=== PATIENT | female | born 1985 | race Caucasian/White ===

== ENCOUNTER → 2017-01-23 | Outpatient (CLI) | payer OTHER ==
[2017-01-23 12:14] LABS: BASO % 0.2 %; BASO ABS # 0.01 K/uL (0-0.2); COMPLETE YES; EOS % 0.3 %; HEMATOCRIT 33.9 % (37-47); IG% 0.2 %; LYMPH % 9.1 %; LYMPH ABS # 0.53 K/uL (1.2-3.4); MEAN CELL VOLUME 90.9 fL (80-100); MEAN CORPUSCULAR HEMOGLOBIN 32.2 pg (25-34); MEAN CORPUSCULAR HGB CONC 35.4 g/dl (32-36); MEAN PLATELET VOLUME 10.5 fL (7.4-10.4); MONO % 7.2 %; PLATELET COUNT 197 K/uL (130-400); RED BLOOD COUNT 3.73 M/uL (4.2-5.4); WHITE BLOOD COUNT 5.85 K/uL (4.8-10.8)
[2017-01-23 16:24] LABS: URINE APPEARANCE CLEAR (CLEAR); URINE BILIRUBIN NEG (NEG); URINE COLOR DK YELLOW; URINE NITRITE NEG (NEG); URINE PH 5.5 (4.5-7.5); UROBILINOGEN NEG (NEG)
[2017-01-23 16:30] LABS: MANUAL MICROSCOPIC REQUIRED? NO; REVIEW REQ? NO
[2017-01-25 22:32] LABS: CHLAMYDIA TRACH RNA*** NOT DETECTED (NOT DETECTED); GC (NEIS GONORRHOEAE)RNA** NOT DETECTED (NOT DETECTED)
== END | disposition home or self-care (01) ==
LOC: C.LAB1850 10:45
PROVIDERS: ATTEND Obstetrics & Gynecology
DX: Z34.91 Encounter for supervision of normal pregnancy, unspecified, first trimester (principal); Z3A.00 Weeks of gestation of pregnancy not specified

== ENCOUNTER → 2017-05-23 | Outpatient (CLI) | payer OTHER | END | disposition home or self-care (01) | LOC: C.LABSPEC 16:50 | PROVIDERS: ATTEND Obstetrics & Gynecology | DX: Z34.83 Encounter for supervision of other normal pregnancy, third trimester (principal); Z3A.00 Weeks of gestation of pregnancy not specified ==

== ENCOUNTER → 2017-06-01 | Outpatient (CLI) | payer OTHER ==
[~2017-06-01] MED LIST: CALC500C3 PO; DOCU-94 PO; DOXY25TA7; ONDA4TAB46 PO; PRENTAB26 PO
[2017-06-01 13:27] LABS: HEMATOCRIT 30.6 % (37-47); HEMOGLOBIN 10.6 g/dL (12.0-16.0)
== END | disposition home or self-care (01) ==
LOC: C.LAB1850 09:28
PROVIDERS: ATTEND Obstetrics & Gynecology
DX: Z34.83 Encounter for supervision of other normal pregnancy, third trimester (principal)

== ENCOUNTER 2017-06-05 22:12 | Outpatient (CLI) | payer OTHER ==
[~2017-06-05] VITALS: Ht 154.9 cm; Wt 55.0 kg
[2017-06-06] MEDS ORDERED: ONDA4TAB46 PO (00:04)
[2017-06-06] MEDS ORDERED: CALC500C3 PO (00:04)
[2017-06-06] MEDS ORDERED: DOCU-94 PO (00:05)
[2017-06-06] MEDS ORDERED: PRENTAB26 PO (00:05)
[2017-06-06] MEDS ORDERED: DOXY25TA7 (00:06)
[2017-06-06 00:23] VITALS: Ht 154.9 cm; Wt 55.0 kg
== END 2017-06-06 00:18 | disposition home or self-care (01) ==
LOC: C.LD 22:12 → C.OPB 22:12
PROVIDERS: ATTEND Obstetrics & Gynecology
DX: O26.893 Other specified pregnancy related conditions, third trimester (principal); R10.9 Unspecified abdominal pain; Z3A.28 28 weeks gestation of pregnancy

== ENCOUNTER 2017-06-22 11:59 | Outpatient (CLI) | payer OTHER ==
[~2017-06-22] VITALS: Ht 154.9 cm; Wt 56.0 kg
[~2017-06-22 11:59] MED LIST changes: -DOXY25TA7; +DOXY25TA8
[2017-06-22] MEDS ORDERED: [UNRECOGNIZED DRUG - CODE] (14:39)
[2017-06-22 14:48] VITALS: Ht 154.9 cm; Wt 56.0 kg
== END 2017-06-22 13:42 | disposition home or self-care (01) ==
LOC: C.OPB 11:59 → C.LD 11:59 → C.OPB 13:42
PROVIDERS: ATTEND Obstetrics & Gynecology
DX: O36.5930 Maternal care for other known or suspected poor fetal growth, third trimester, not applicable or unspecified (principal); Z3A.31 31 weeks gestation of pregnancy

== ENCOUNTER 2017-07-08 11:16 | Emergency (ER) | payer OTHER ==
[~2017-07-08] VITALS: Ht 157.5 cm; Wt 56.9 kg
[~2017-07-08 11:16] MED LIST changes: -DOXY25TA8; +DOXY25TA8 PO; +[UNRECOGNIZED DRUG - CODE]
[2017-07-08 11:21] VITALS: TEMP 36.9; Ht 157.5 cm; Wt 56.9 kg
[2017-07-08] MEDS ORDERED: SODIUM CHLORIDE 0.9% 1000ML 1,000 ML IV STA (11:43)
--- NOTE | 2017-07-08 12:09 | EMERGENCY ROOM VISIT NOTE ---
History Report prepared by Yasiribe: Char Garduno Under the Supervision of: Dr. Viry Kwan M.D. First contact with patient: 11:38 Chief Complaint: HYPERTENSION Stated Complaint: HIGH HEART RATE, 33 WKS PREG, OXYGEN HUNGER THROUG History of Present Illness The patient is a 31 year old female who presents to the Emergency Room with complaints of intermittent tachycardia for the past 3 months. She is currently 33 weeks with her 2nd and has 1 child at home. She states her heart rate was in the 100s with no activity earlier today, so she called her [facility] UP WORKER and was referred here to the ED. She notes last night she did experience chest pain while grocery shopping, but it eventually resolved. The patient complains of ongoing "Oxygen hunger", stating she feels like she cannot get enough Oxygen from the air. She denies hyperventilating or feeling like she is gasping for breath. The episodes seem to occur during urination. The patient denies any personal history of blood clots but states her Father did develop a DVT after surgery. She denies any recent fevers or cold symptoms. Her is small for term, and within the 3-6 percentile for her gestational age. She has been receiving ultrasounds twice a week at her OB to get measurements. Her first born child had no issues with being small for term. The patient denies any recent abdominal cramping or vaginal bleeding. Source of History: patient Onset: 3 months [facility] Position: chest Timing: intermittent Associated Symptoms: + chest pain, + SOB, No abdominal pain Review of Systems See HPI for pertinent positives & negatives. A total of 10 systems reviewed and were otherwise negative. Past Medical & Surgical Medical Problems: (1) 31 weeks gestation of (2) Eczema (3) IBS (irritable bowel syndrome) (4) IUGR (intrauterine growth restriction) affecting care of mother (5) uterine contractions Social History Smoking Status: Never Smoker Alcohol Use: occasionally Drug Use: none Marital Status: Housing Status: lives with family Occupation Status: employed Current/Historical Medications Scheduled Docusate Sodium (Colace), 100 MG PO DAILY Doxylamine Succinate (Sleep) (Unisom), 12.5 MG PO HS Ferrous Sulfate (Iron (Ferrous Sulfate)), 1 TAB PO UD Multivit/Min/Iron/Fol Ac/Pren ( Vitamin), 1 TAB PO DAILY Scheduled PRN Calcium Carbonate (Tums), PO PRN PRN for Heartburn Ondansetron Hcl (Zofran), 4 MG PO for Nausea or Vomiting Allergies Coded Allergies: [place] Nut (Verified Allergy, Intermediate, GI SYMPTOMS, 07/08/17) Coconut (Verified Adverse Reaction, Intermediate, GI SYMPTOMS, 07/08/17) [place] Syrup (Verified Adverse Reaction, Intermediate, GI SYMPTOMS, 07/08/17) Egg (Verified Adverse Reaction, Intermediate, GI SYMPTOMS, 07/08/17) Lactose. (Verified Adverse Reaction, Intermediate, GI SYMPTOMS, 07/08/17) Soybean (Verified Adverse Reaction, Intermediate, GI SYMPTOMS, 07/08/17) Uncoded Allergies: raw fruits/veggies (Allergy, Intermediate, HIVES, 06/22/17) tree nuts (Allergy, Intermediate, HIVES, 06/22/17) Physical Exam Vital Signs Date Time Temp Pulse Resp B/P (MAP) Pulse Ox O2 Delivery O2 Flow Rate FiO2 07/08/17 15:20 78 20 106/68 98 07/08/17 12:30 91 16 115/65 98 Room Air 88 106/63 97 112/71 07/08/17 11:47 120 07/08/17 11:21 36.9 110 18 130/71 99 Room Air Physical Exam Vital signs reviewed. General: Well-appearing 31 year old female, in no significant distress. HEENT: No scleral icterus, PERRLA, neck supple. Atraumatic. Cardiovascular: Occasional tachycardic heart rate, but regular rhythm, no extra sounds. Pulmonary: Clear to auscultation bilaterally, normal work of breathing. Abdomen: Gravid abdomen, nontender, positive bowel sounds. Musculoskeletal: Atraumatic, no peripheral edema. Neurologic: Patient awake alert and oriented x 3, full strength in all 4 extremities. Cranial nerves 2 through 12 grossly intact. Skin: Warm, dry, no rash Medical Decision & Procedures ER Provider Diagnostic Interpretation: Radiology results as stated below per my review and radiologist interpretation: SINGLE VIEW CHEST CLINICAL HISTORY: Dyspnea. FINDINGS: An AP, portable, upright chest radiograph is obtained. No prior studies are available for comparison at the time of dictation. The examination is degraded by portable technique and patient rotation. The cardiomediastinal silhouette is unremarkable. The lungs and pleural spaces are clear. No pneumothorax is seen. The bony thorax is grossly intact. IMPRESSION: No active disease in the chest. Electronically signed by: Gagan Pa M.D. 07/08/2017 12:41 PM ULTRASOUND BILATERAL LOWER EXTREMITY VENOUS CLINICAL HISTORY: Dyspnea. . Clinical concern for deep venous thrombosis. COMPARISON STUDY: No priors. TECHNIQUE: Real-time, grayscale, and color Doppler sonography of the deep veins of the right and left lower extremity was performed from the inguinal crease to the calf. Compression and augmentation were utilized. FINDINGS: There is no sonographic evidence of deep venous thrombosis identified in the right or left lower extremity. The common femoral, superficial femoral, and popliteal veins are patent and normally compressible bilaterally. The greater saphenous vein and the profunda femoris vein at the junction with the common femoral vein are clear in both legs. The visualized calf veins are patent bilaterally. IMPRESSION: There is no sonographic evidence of deep venous thrombosis identified in the right or left lower extremity. Electronically signed by: Gagan Pa M.D. 07/08/2017 2:30 PM Laboratory Results 07/08/17 12:15 Red Blood Count 2.95, Mean Corpuscular Volume 93.9, Mean Corpuscular Hemoglobin 35.3, Mean Corpuscular Hemoglobin Concent 37.5, Mean Platelet Volume 9.3, Neutrophils (%) (Auto) 82.6, Lymphocytes (%) (Auto) 6.7, Monocytes (%) (Auto) 9.0, Eosinophils (%) (Auto) 0.6, Basophils (%) (Auto) 0.1, Neutrophils # (Auto) 8.18, Lymphocytes # (Auto) 0.66, Monocytes # (Auto) 0.89, Eosinophils # (Auto) 0.06, Basophils # (Auto) 0.01 07/08/17 12:15 Test 07/08/17 12:05 07/08/17 12:15 Urine Color YELLOW Urine Appearance CLEAR (CLEAR) Urine pH 8.0 (4.5-7.5) Urine Specific [place] 1.005 (1.000-1.030) Urine Protein NEG (NEG) Urine Glucose (UA) NEG (NEG) Urine Ketones NEG (NEG) Urine Occult Blood NEG (NEG) Urine Nitrite NEG (NEG) Urine Bilirubin NEG (NEG) Urine Urobilinogen NEG (NEG) Urine Leukocyte Esterase NEG (NEG) White Blood Count 9.90 K/uL (4.8-10.8) Red Blood Count 2.95 M/uL (4.2-5.4) Hemoglobin 10.4 g/dL (12.0-16.0) Hematocrit 27.7 % (37-47) Mean Corpuscular Volume 93.9 fL (80-100) Mean Corpuscular Hemoglobin 35.3 pg (25-34) Mean Corpuscular Hemoglobin Concent 37.5 g/dl (32-36) Platelet Count 170 K/uL (130-400) Mean Platelet Volume 9.3 fL (7.4-10.4) Neutrophils (%) (Auto) 82.6 % Lymphocytes (%) (Auto) 6.7 % Monocytes (%) (Auto) 9.0 % Eosinophils (%) (Auto) 0.6 % Basophils (%) (Auto) 0.1 % Neutrophils # (Auto) 8.18 K/uL (1.4-6.5) Lymphocytes # (Auto) 0.66 K/uL (1.2-3.4) Monocytes # (Auto) 0.89 K/uL (0.11-0.59) Eosinophils # (Auto) 0.06 K/uL (0-0.5) Basophils # (Auto) 0.01 K/uL (0-0.2) RDW Standard Deviation 50.5 fL (36.4-46.3) RDW Coefficient of Variation 14.6 % (11.5-14.5) Immature Granulocyte % (Auto) 1.0 % Immature Granulocyte # (Auto) 0.10 K/uL (0.00-0.02) Prothrombin Time 10.0 SECONDS (9.0-12.0) Prothromb Time International Ratio 1.0 (0.9-1.1) Activated Partial Thromboplast Time 24.0 SECONDS (21.0-31.0) Partial Thromboplastin Ratio 0.9 Anion Gap 8.0 mmol/L (3-11) Est Creatinine Clear Calc Drug Dose 131.3 ml/min Estimated GFR () > 150.0 Estimated GFR (Non- 130.8 BUN/Creatinine Ratio 11.1 (10-20) Calcium Level 8.3 mg/dl (8.5-10.1) Total Bilirubin 0.6 mg/dl (0.2-1) Direct Bilirubin 0.1 mg/dl (0-0.2) Aspartate Amino Transf (AST/SGOT) 13 U/L (15-37) Alanine Aminotransferase (ALT/SGPT) 14 U/L (12-78) Alkaline Phosphatase 75 U/L (45-117) Total Creatine Kinase 27 U/L (26-192) Creatine Kinase MB < 0.5 ng/ml (0.5-3.6) Creatine Kinase MB Ratio (0-3.0) Total Protein 5.7 gm/dl (6.4-8.2) Albumin 2.7 gm/dl (3.4-5.0) Thyroid Stimulating Hormone (TSH) 2.780 uIu/ml (0.300-4.500) Laboratory results per my review. Medications Administered Medications (Trade) Dose Ordered Sig/Evelina Route Start Time Stop Time Status Last Admin Dose Admin Sodium Chloride 1,000 ml @ 999 mls/hr Q1H1M STAT IV 07/08/17 11:43 07/08/17 12:43 DC 07/08/17 12:15 999 MLS/HR Potassium Chloride (Klor-Con M10) 40 meq NOW STAT PO 07/08/17 13:25 07/08/17 13:26 DC 07/08/17 13:38 40 MEQ Potassium Chloride (Klor-Con Pwd) 40 meq NOW STAT PO 07/08/17 13:42 07/08/17 13:43 DC 07/08/17 14:35 40 MEQ ECG Per My Interpretation Indication: SOB/dyspnea Rate (beats per minute): 85 Rhythm: normal sinus (with sinus arrhythmia) Findings: no acute ischemic change, no ectopy ED Course 1140: Past medical records reviewed. The patient was evaluated in room B8. A complete history and physical examination was performed. 1143: NSS 1000 ml @ 999 mls/hr IV. 1325: Potassium Chloride 40 meq PO, Potassium Chloride 40 meq PO. 1500: I reevaluated the patient. She is feeling well and resting comfortably. I discussed her results and discharge instructions and she verbalized complete understanding and agreement. Medical Decision Differential diagnosis: Etiologies such as infections, reactive airway disease, pneumonia, pneumothorax , COPD, CHF, cardiac ischemia, pulmonary embolism, musculoskeletal, gastrointestinal, as well as others were entertained. This patient was evaluated and appeared to be in no significant distress. Physical examination is significant only for tachycardia which tends to resolve when the patient is laced on her side. Patient was hydrated with normal saline solution. Laboratory work reveals a mild anemia, likely secondary to the . Ultrasound of the bilateral lower extremities are negative for DVT, chest x-ray is negative. The patient has no significant risk factors for DVT/ PE with the exception of the . I do not have a strong suspicion at this time. We did discuss the risks and benefits of the CAT scan which we will defer at this time. The patient did feel much improved after the IV hydration. She is found to be hypokalemic and repleted with 40 mEq of oral potassium. She was advised to maintain a high potassium diet as well as increase the iron in her diet. She is currently on iron supplementation. She will follow-up with SET UP WORKER this week as scheduled for reevaluation and return to the ER for worsening of symptoms or any medical concerns. Medication Reconcilliation Current Medication List: was personally reviewed by me Blood Pressure Screening Patient's blood pressure: Normal blood pressure Blood pressure disposition: Did not require urgent referral Impression Primary Impression: Anemia affecting Additional Impression: Dyspnea Scribe Attestation The scribe's documentation has been prepared under my direction and personally reviewed by me in its entirety. I confirm that the note above accurately reflects all work, treatment, procedures, and medical decision making performed by me. Departure Information Dispostion Home / Self-Care Referrals No Doctor, Assigned (PCP) Patient Instructions My [facility] Additional Instructions Diagnosis: related anemia, dyspnea Please drink plenty of fluids during the day. Attempt to position on your side to avoid compressing your blood return. Follow-up with SET UP WORKER this week for reevaluation. Return to the ER for worsening of symptoms or any medical concerns. Problem Qualifiers
[2017-07-08 12:35] LABS: BASO % 0.1 %; BASO ABS # 0.01 K/uL (0-0.2); EOS % 0.6 %; EOS ABS # 0.06 K/uL (0-0.5); HEMATOCRIT 27.7 % (37-47); HEMOGLOBIN 10.4 g/dL (12.0-16.0); LYMPH % 6.7 %; LYMPH ABS # 0.66 K/uL (1.2-3.4); MEAN CELL VOLUME 93.9 fL (80-100); MEAN CORPUSCULAR HEMOGLOBIN 35.3 pg (25-34); MEAN CORPUSCULAR HGB CONC 37.5 g/dl (32-36); MEAN PLATELET VOLUME 9.3 fL (7.4-10.4); MONO ABS # 0.89 K/uL (0.11-0.59); NEUT % 82.6 %; NEUT ABS # 8.18 K/uL (1.4-6.5); PLATELET COUNT 170 K/uL (130-400); RED CELL DISTRIBUTION WIDTH CV 14.6 % (11.5-14.5); RED CELL DISTRIBUTION WIDTH SD 50.5 fL (36.4-46.3)
--- NOTE | 2017-07-08 12:43 | DIAGNOSTIC IMAGING REPORT ---
SINGLE VIEW CHEST CLINICAL HISTORY: Dyspnea. FINDINGS: An AP, portable, upright chest radiograph is obtained. No prior studies are available for comparison at the time of dictation. The examination is degraded by portable technique and patient rotation. The cardiomediastinal silhouette is unremarkable. The lungs and pleural spaces are clear. No pneumothorax is seen. The bony thorax is grossly intact. IMPRESSION: No active disease in the chest. Electronically signed by: Gagan Pa M.D. 07/08/2017 12:41 PM Dictated Date/Time: 07/08/2017 12:41 PM
[2017-07-08] MEDS ORDERED: FERR50TA3 PO (12:50)
[2017-07-08 12:52] LABS: ALBUMIN 2.7 gm/dl (3.4-5.0); ALT/SGPT 14 U/L (12-78); BLOOD UREA NITROGEN 6 mg/dl (7-18); CALCIUM 8.3 mg/dl (8.5-10.1); CARBON DIOXIDE 24 mmol/L (21-32); GLUCOSE 83 mg/dl (70-99); SODIUM 140 mmol/L (136-145)
[2017-07-08 13:03] LABS: ALKALINE PHOSPHATASE 75 U/L (45-117); AST/SGOT 13 U/L (15-37); CKMB < 0.5 ng/ml (0.5-3.6); TOTAL PROTEIN 5.7 gm/dl (6.4-8.2)
[2017-07-08] MEDS ORDERED: POTASSIUM CHLORIDE 10 MEQ TABCR PO STA (13:25)
[2017-07-08] MEDS ORDERED: POTASSIUM CHLORIDE PWD 20 MEQ PACK PO STA (13:42)
--- NOTE | 2017-07-08 14:31 | DIAGNOSTIC IMAGING REPORT ---
ULTRASOUND BILATERAL LOWER EXTREMITY VENOUS CLINICAL HISTORY: Dyspnea. . Clinical concern for deep venous thrombosis. COMPARISON STUDY: No priors. TECHNIQUE: Real-time, grayscale, and color Doppler sonography of the deep veins of the right and left lower extremity was performed from the inguinal crease to the calf. Compression and augmentation were utilized. FINDINGS: There is no sonographic evidence of deep venous thrombosis identified in the right or left lower extremity. The common femoral, superficial femoral, and popliteal veins are patent and normally compressible bilaterally. The greater saphenous vein and the profunda femoris vein at the junction with the common femoral vein are clear in both legs. The visualized calf veins are patent bilaterally. IMPRESSION: There is no sonographic evidence of deep venous thrombosis identified in the right or left lower extremity. Electronically signed by: Gagan Pa M.D. 07/08/2017 2:30 PM Dictated Date/Time: 07/08/2017 2:29 PM
[2017-07-08 15:20] VITALS: BP 106/68; PULSE 78; O2SAT 98
== END 2017-07-08 15:21 | disposition home or self-care (01) ==
LOC: C.EDB 11:20
DX: O99.013 Anemia complicating pregnancy, third trimester (principal); O99.513 Diseases of the respiratory system complicating pregnancy, third trimester; R06.00 Dyspnea, unspecified; Z3A.33 33 weeks gestation of pregnancy; K58.9 Irritable bowel syndrome, unspecified; Z91.018 Allergy to other foods; Z91.012 Allergy to eggs; Z91.011 Allergy to milk products

== ENCOUNTER → 2017-07-26 | Outpatient (CLI) | payer OTHER ==
[~2017-07-26] MED LIST changes: +FERR50TA3 PO; -[UNRECOGNIZED DRUG - CODE]
== END | disposition home or self-care (01) ==
LOC: C.LABSPEC 13:52
PROVIDERS: ATTEND Obstetrics & Gynecology
DX: Z34.83 Encounter for supervision of other normal pregnancy, third trimester (principal)

== ENCOUNTER 2017-08-15 07:54 | Inpatient (IN) | payer OTHER ==
[~2017-08-15] VITALS: Ht 154.9 cm; Wt 60.5 kg
[2017-08-15] MEDS ORDERED: LACTATED RINGER'S 1000ML 1,000 ML IV PRN (08:10)
[2017-08-15] MEDS ORDERED: LACTATED RINGER'S 1000ML 1,000 ML IV SCH ×2 (08:10→13:50)
[2017-08-15] MEDS ORDERED: LACTATED RINGER'S 1000ML 500 ML IV PRN ×2 (08:10→10:19)
[2017-08-15] MEDS ORDERED: OXYTOCIN 30 UNITS/500ML NSS IV PRN ×2 (08:15→14:00)
[2017-08-15 08:39] LABS: HEMATOCRIT 29.2 % (37-47); HEMOGLOBIN 10.6 g/dL (12.0-16.0); MEAN CELL VOLUME 94.8 fL (80-100); MEAN CORPUSCULAR HEMOGLOBIN 34.4 pg (25-34); MEAN CORPUSCULAR HGB CONC 36.3 g/dl (32-36); MEAN PLATELET VOLUME 9.6 fL (7.4-10.4); PLATELET COUNT 154 K/uL (130-400); RED CELL DISTRIBUTION WIDTH SD 50.8 fL (36.4-46.3); WHITE BLOOD COUNT 12.53 K/uL (4.8-10.8)
[2017-08-15 09:16] VITALS: BMI 25.2
[2017-08-15] MEDS ORDERED: BUPIVACAINE 0.25% 30 ML VIAL ONE (09:25)
[2017-08-15] MEDS ORDERED: EpHEDrine SULFATE INJ 50 MG/ML AMP ONE (09:26)
[2017-08-15] MEDS ORDERED: FENTANYL CITRATE INJ 50 MCG/1 ML 2 ML VIAL ONE (09:26)
[2017-08-15] MEDS ORDERED: FENTANYL 2MCG/ML ROPIV 1.25MG/ML 100ML BAG EPI ONE (09:27)
[2017-08-15] MEDS ORDERED: NALOXONE HCL INJ 1 MG in SODIUM CHLORIDE 0.9% 1000ML 1,000 ML IV PRN ×4 (10:19)
[2017-08-15] MEDS ORDERED: NALOXONE HCL INJ 0.4 MG/1 ML VIAL/CARP IV PRN (10:30)
[2017-08-15] MEDS ORDERED: PROMETHAZINE HCL INJ 25 MG in SODIUM CHLORIDE 0.9% 50ML 50 ML IV PRN (10:30)
[2017-08-15] MEDS ORDERED: DiphenhydrAMINE HCL 50 MG/ML VIAL IV PRN (10:30)
[2017-08-15] MEDS ORDERED: ONDANSETRON INJ 2 MG/ML 2 ML VIAL IV PRN (10:30)
[2017-08-15] MEDS ORDERED: NALBUPHINE HCL INJ 10 MG/ML AMP IV PRN (10:30)
[2017-08-15] MEDS ORDERED: ONDANSETRON 8 MG/54 ML D5W IV ONE (10:30)
[2017-08-15] MEDS ORDERED: EpHEDrine SULFATE INJ 50 MG/ML AMP IV PRN (10:30)
[2017-08-15] MEDS ORDERED: FENTANYL 2MCG/ML ROPIV 1.25MG/ML 100ML BAG EPI PRN (10:30)
[2017-08-15] MEDS ORDERED: ONDANSETRON INJ 8 MG in DEXTROSE 5% 50ML 50 ML IV STA (10:41)
[2017-08-15 11:06] VITALS: Ht 154.9 cm; Wt 60.5 kg
--- NOTE | 2017-08-15 13:54 | Vaginal Delivery Summary ---
Vaginal Delivery Summary Patient reached complete dilation and +2 station with urge to push. While I remained at bedside she was coached through second stage of labor, quickly bringing the head to . Hot compresses were applied. The perineum was prepped with soapy water. The head delivered in OA position followed by both shoulders and body without any difficulty. The cord was doubly clamped and cut. The placenta delivered spontaneously and was sent for exam due to diagnosis of IUGR. There was a first degree perineal laceration that was repaired using 3-0 vicryl in the usual manner.
[2017-08-15] MEDS ORDERED: OXYCODONE/ACETAMINOPHEN 5-325 TAB PO PRN (14:00)
[2017-08-15] MEDS ORDERED: ACETAMINOPHEN 325 MG TAB PO PRN (14:00)
[2017-08-15] MEDS ORDERED: HYDROCORTISONE ACETATE 25 MG SUPP PR PRN (14:00)
[2017-08-15] MEDS ORDERED: SUPERCREAM 0.870 % 15GM JAR EXT PRN (14:00)
[2017-08-15] MEDS ORDERED: LANOLIN OINT EXT PRN (14:00)
[2017-08-15] MEDS ORDERED: DIPHTHERIA/TETANUS/PERTUSSIS 0.5 ML SYR/VIAL IM. ONE (14:00)
[2017-08-15] MEDS ORDERED: BENZOCAINE 20% AER SPR 82.5 GM CAN EXT PRN (14:00)
--- NOTE | 2017-08-15 14:41 | Anesthesia Procedure Note ---
Anesthesia Epidural Removal Nt Date & Time Aug 15, 2017 at 14:41 Vital Signs Pain Intensity: 0.0 Notes Mental Status: alert / awake / arousable, participated in evaluation Nausea / Vomiting: adequately controlled Pain: adequately controlled Airway Patency, RR, SpO2: stable & adequate BP & HR: stable & adequate Hydration State: stable & adequate Neuraxial Anesthesia: was administered Anesthetic Complications: no major complications apparent, pt satisfied with anesthetic care Epidural: removed without complications, with tip intact
[2017-08-15] MEDS: IBUPROFEN 600 MG TAB PO PRN ×2 (15:33→20:37)
[2017-08-15] MEDS ORDERED: NURSING VERBAL MED ORDER STA (15:41)
[2017-08-15] MEDS ORDERED: NURSING VERBAL MED ORDER ONE (15:55)
[2017-08-15] MEDS ORDERED: OXYTOCIN INJ 30 UNITS in LACTATED RINGER'S 1000ML 1,000 ML IV SCH (16:00)
--- NOTE | 2017-08-15 16:21 | Progress Note ---
Progress Note Date of Service Aug 15, 2017. Progress Note I was called to L and D room 3 for a hemorrhage. The patient had lost a clot of approx 350cc in volume (approx navel orange to grapefruit in volume) and was "not feeling well," noting dizziness and shakiness. Vitals were 100s/60s with pulse of 100s. Patient was lying supine and then repositioned herself to L lateral, and was awake / talking. A bag of 1L LR with 30u pitocin was being prepared in the room by nursing since none was available pre-mixed. This was then hung through L IV site. I asked a second IV be placed in R arm which was done, 18g. The patient was placed supine and I examined her with sterile gloves, found uterus at 2cm above umbilicus, and expressed additional clots of estimated 650cc (approx small loaf of bread in volume). I placed 800mcg of cytotec rectally. A stat CBC was obtained, and T& S for 2u was also requested. Phlebotomy was given access to the patient. A bakri was brought to the room at my request. The next uterine exam revealed firm -1cm and no additional clots or heavy bleeding, so we did not place the Bakri. At this time the patient has 1L with 30u pitocin running wide open, and a second IV line at 250cc crystalloid, and vitals are 177/70 pulse 96.
[2017-08-15] MEDS ORDERED: OXYTOCIN INJ 10 UNITS/ML VIAL ONE (16:26)
[2017-08-15 16:28] LABS: BASO % 0.1 %; BASO ABS # 0.01 K/uL (0-0.2); EOS % 0.1 %; EOS ABS # 0.01 K/uL (0-0.5); HEMATOCRIT 23.3 % (37-47); HEMOGLOBIN 8.5 g/dL (12.0-16.0); LYMPH % 6.9 %; LYMPH ABS # 1.15 K/uL (1.2-3.4); MEAN CELL VOLUME 95.5 fL (80-100); MEAN CORPUSCULAR HEMOGLOBIN 34.8 pg (25-34); MEAN PLATELET VOLUME 9.5 fL (7.4-10.4); MONO % 7.7 %; MONO ABS # 1.29 K/uL (0.11-0.59); NEUT % 84.6 %; NEUT ABS # 14.16 K/uL (1.4-6.5); PLATELET COUNT 181 K/uL (130-400); RED CELL DISTRIBUTION WIDTH CV 15.1 % (11.5-14.5); RED CELL DISTRIBUTION WIDTH SD 52.2 fL (36.4-46.3); WHITE BLOOD COUNT 16.72 K/uL (4.8-10.8)
[2017-08-15 16:31] LABS: MEAN CORPUSCULAR HGB CONC 36.5 g/dl (32-36)
[2017-08-15] MEDS ORDERED: MISOPROSTOL 200 MCG TAB PR ONE (16:45)
[2017-08-15] MEDS ORDERED: ONDANSETRON INJ 2 MG/ML 2 ML VIAL IV. SCH (18:30)
[2017-08-15] MEDS: DOCUSATE SODIUM 100 MG CAP PO SCH (20:40)
[2017-08-15 22:37] LABS: HEMATOCRIT 18.9 % (37-47); HEMOGLOBIN 6.9 g/dL (12.0-16.0)
[2017-08-15 23:54] VITALS: BP 114/60; PULSE 81; TEMP 36.5
[2017-08-16] VITALS (21 sets, daily range): BP systolic 104–121; BP diastolic 56–83; PULSE 58–105; TEMP 36.5–37; O2SAT 96–100
[2017-08-16] MEDS: IBUPROFEN 600 MG TAB PO PRN ×4 (01:13→20:12)
--- NOTE | 2017-08-16 06:46 | Progress Note ---
Subjective Aug 16, 2017. Subjective conversation w/ patient, conversation w/ family, physical exam, chart review, lab review Ambulation: limited ambulation Voiding: no voiding problems Passing Gas: Yes Diet Tolerance: Regular Diet Lochia: Moderate Feeding Type: Breast Feeding Review of Systems Constitutional: No fever, No chills Respiratory: No cough, No shortness of breath Cardiac: No chest pain Abdomen: No pain, No nausea, No vomiting Female : No dysuria Objective Vital Signs Date Time Temp Pulse Resp B/P (MAP) Pulse Ox O2 Delivery O2 Flow Rate FiO2 08/16/17 05:30 36.6 68 18 109/72 (84) Room Air 08/16/17 05:30 Room Air 08/16/17 04:08 36.7 66 18 117/73 100 08/16/17 03:08 36.7 64 18 112/64 98 08/16/17 02:38 36.5 62 18 120/68 98 08/16/17 02:23 36.6 78 18 114/68 98 08/16/17 00:58 36.8 95 18 107/67 97 08/16/17 00:45 36.8 100 18 115/69 100 08/16/17 00:43 36.8 100 18 115/69 100 08/16/17 00:37 36.8 86 18 104/62 100 08/16/17 00:22 36.8 86 18 107/72 99 08/16/17 00:17 36.8 78 18 111/56 96 08/16/17 00:15 36.8 95 18 107/66 100 08/16/17 00:12 36.8 105 18 109/68 100 08/16/17 00:07 36.8 88 18 114/69 97 08/16/17 00:02 36.7 101 18 121/76 99 08/15/17 23:54 36.5 81 20 114/60 Physical Exam General Appearance: WELL-APPEARING, WD/WN, NO APPARENT DISTRESS Respiratory/Chest: lungs clear, no respiratory distress Cardiovascular: regular rate, rhythm, no murmur Abdomen: normal bowel sounds, non tender, soft Fundus: Firm, Relation to Umbilicus (at the level of the u) Extremities: non-tender, normal inspection Laboratory Results Last 24 Hours Test 08/15/17 08:21 08/15/17 16:06 08/15/17 22:19 08/16/17 06:09 White Blood Count 12.53 K/uL 16.72 K/uL Red Blood Count 3.08 M/uL 2.44 M/uL Hemoglobin 10.6 g/dL 8.5 g/dL 6.9 g/dL Hematocrit 29.2 % 23.3 % 18.9 % Mean Corpuscular Volume 94.8 fL 95.5 fL Mean Corpuscular Hemoglobin 34.4 pg 34.8 pg Mean Corpuscular Hemoglobin Concent 36.3 g/dl 36.5 g/dl RDW Standard Deviation 50.8 fL 52.2 fL RDW Coefficient of Variation 15.0 % 15.1 % Platelet Count 154 K/uL 181 K/uL Mean Platelet Volume 9.6 fL 9.5 fL Neutrophils (%) (Auto) 84.6 % Lymphocytes (%) (Auto) 6.9 % Monocytes (%) (Auto) 7.7 % Eosinophils (%) (Auto) 0.1 % Basophils (%) (Auto) 0.1 % Neutrophils # (Auto) 14.16 K/uL Lymphocytes # (Auto) 1.15 K/uL Monocytes # (Auto) 1.29 K/uL Eosinophils # (Auto) 0.01 K/uL Basophils # (Auto) 0.01 K/uL Immature Granulocyte % (Auto) 0.6 % Immature Granulocyte # (Auto) 0.10 K/uL Red Blood Cell Morphology Unremarkable Assessment and Plan Problem List Medical Problems: (1) Anemia affecting Status: Acute (2) Anemia affecting in third trimester Status: Acute (3) Dyspnea Status: Acute Post- Day#: 1 Continue Routine Care: 31, F, , A+/GBS-/RI, vaginal delivery yesterday am, PPD1. Patient experienced hemorrhage in the afternoon, with EBL of 1000 cc in addition to blood loss at delivery. The patient was found to have a Hgb of 6.9 and was subsequently transfused 2 units of PRBC. The patient is doing well this am. She has not been up to ambulate and denies symptoms of severe anemia; no chest pain, sob, visual changes. Vitals were reviewed this am and are WNL. H/H is pending this am. 1. Recovery following vaginal delivery--ambulation with assistance, support BF, monitor lochia, control pain 2. Hemorrhage--monitor lochia, vitals and I/O's. Patient's vitals are WNL, Hgb is pending. Determine need for additional blood products. Resident Physician Supervision Note: I interviewed and examined the patient. Discussed with Dr. Nunez and agree with findings and plan as documented in the note. Any exceptions or clarifications are listed here: [None] Documented By: Judith Stuart
[2017-08-16 06:55] LABS: HEMATOCRIT 26.1 % (37-47); HEMOGLOBIN 9.4 g/dL (12.0-16.0)
--- NOTE | 2017-08-16 07:16 | Discharge Instructions ---
Discharge Instructions Date of Service Aug 16, 2017. Admission Reason for Admission: Induction Discharge Discharge Diagnosis / Problem: vaginal delivery Discharge Goals Goal(s): Routine recovery after delivery Medications Continue Dispensed Medications: supercream, dermaplast, tucks, lansinoh Activity Recommendations Activity Limitations: per Instructions/Follow-up section . Instructions / Follow-Up Instructions / Follow-Up ACTIVITY RECOMMENDATIONS: * Gradual return to full activity over the next 2-3 weeks. * No lifting - nothing heavier than baby over the next 2-3 weeks. * Do not engage in vigorous exercise, sexual activity or sports until cleared by your physician. * Do not drive or operate any motorized equipment until cleared by your physician. * You may shower/bathe daily. MEDICATIONS: For discomfort or pain, you may use Acetaminophen (Tylenol), Ibuprofen (Advil), or Naproxen (Aleve) following the package directions. For constipation you may use Colace following the package directions. BREAST CARE: If you are not breast feeding: * Wear a supportive bra 24 hours a day for one to two weeks. * Avoid stimulating your breasts and nipples as much as possible during the first few weeks after delivery. * When taking a shower, have the warm water hit your back, not breasts. * When your breasts feel full, apply ice packs. Usually three to four times a day helps ease the discomfort. * Take a mild pain medication (Tylenol / Motrin) when you are uncomfortable. If breast feeding: * Use breast milk to lubricate nipples. Lansinoh cream may be used for sore nipples. You do not need to remove cream prior to breast feeding. If using a different brand of cream, check the label for directions regarding removal of cream prior to nursing. * Wear a supportive bra. * If having problems with breasts or breast feeding, call a e business consultant or your health care provider. EPISIOTOMY CARE: After delivery, if you have an episiotomy (stitches), the following steps will ease discomfort and aid healing. * For the first 24 hours after delivery, place ice packs next to your episiotomy to help reduce swelling. * After the first 24 hour-period, sitz baths, either portable or in the tub, are suggested. A shower with a shower arm sprayed over the episiotomy may be comforting. * Antonia care should be done after each voiding and bowel movement. Squirt warm water from a plastic bottle over the perineum (region of the body between the anus and urinary opening) and pat dry. * Use Dermoplast to ease discomfort. Shake container. [place] directly over the episiotomy. Place a Tucks on a clean sanitary pad next to your episiotomy. SPECIAL CARE INSTRUCTIONS: When you are discharged from the hospital, it is important for you to follow the instructions listed below: * During the first week at home, you should be able to care for yourself and your baby. In addition, the usual light household activities are encouraged. * Limit your activities to the way you feel. Do not try to clean the house or move furniture. Be sensible. * If you actively engage in sports and have done so up until the time of your delivery, you may resume these activities as soon as you feel able. This may take up to one month or even longer. Use good judgment. * Continue to take your vitamins for at least six weeks after the of your baby. * Your diet need not be limited unless you were on a special diet before your delivery. Breast-feeding mothers need around 2500 calories per day and at least 64-80 ounces of fluid per day (8 to 10 glasses). * You should eat foods from the four major food groups. Crash diets or fad diets are to be avoided. Eating lean meats, fresh fruits and vegetables, low-fat dairy products, high fiber foods and a regular exercise program, will help you get back to your pre- weight without putting your health at risk. * Constipation is sometimes a problem after delivery. Take a mild laxative as needed. If breast feeding, Milk of Magnesia is acceptable to use. You may use a suppository or Fleets enema if no episiotomy. * A daily shower or tub bath is suggested. Be sure to thoroughly and gently dry the perineum. * A bloody vaginal discharge will usually continue until around four weeks post . A small amount of bleeding may continue for as long as six weeks. Vaginal discharge changes from the bright red bleeding after delivery to pink then brownish and finally yellowish-pink before becoming white and disappearing. * Bleeding may increase with activity. Your first period may come in 4-8 weeks. If you are breast feeding, your period may be delayed even longer. * Gary (sex) can begin whenever both you and your partner feel comfortable and do not have any form of genital infection. It is recommended that you wait at least six weeks for internal and external healing to occur. If you have questions, please talk to your health care practitioner. A condom should be used to prevent infection and . * Foreplay, gentle intercourse and lubrication is very important the first several times to prevent pain. A water-based lubricant such as K-Y jelly or Astroglide may be used. * If you have RH negative blood and your baby is RH positive, you will receive RHOGAM by injection prior to discharge. The nurse will give you a card to keep with you that has the date and place that you received RHOGAM after delivery. * During your care, you had a Rubella screen done to check for the presence of rubella antibodies in your blood. If your test was negative, you will receive a Rubella vaccine prior to discharge. This vaccine may cause a fever, soreness at the injection site and flu-like symptoms. If these symptoms persist, notify your health care practitioner. is not advised for one month after a Rubella vaccine. * Verbalizes understanding of car seat law as reviewed with patient nursing. * Car Seat hand-out given and reviewed with patient by nursing. * Shaken baby information reviewed with patient by nursing. Call you doctor if: * Heavy bleeding (saturating several pads an hour) or passing clots the size of your fist. * A fever >101 degrees F (38.3 degrees C) on two occasions four hours apart and /or chills. * Unusual pain in the pelvic or vaginal areas. * "Baby Blues" lasting longer than two weeks. If you have any questions or concerns, call your health care practitioner at . FOLLOW UP VISIT: * Please call the office at to schedule a 6 week examination. It is important you keep this appointment. It is important for you to make arrangements for either yearly or twice yearly check-ups thereafter. Current Hospital Diet Patient's current hospital diet: Regular OB Diet Discharge Diet Recommended Diet: Regular Diet, Regular OB Diet Pending Studies Studies pending at discharge: no Medical Emergencies . Who to Call and When: Medical Emergencies: If at any time you feel your situation is an emergency, please call [phone] immediately. . Non-Emergent Contact Non-Emergency issues call your: Primary Care Provider, [employer]ensional [employer] . . "Provider Documentation" section prepared by Juan Nunez. .
[2017-08-16] MEDS: DOCUSATE SODIUM 100 MG CAP PO SCH ×2 (08:55→20:11)
[2017-08-16] MEDS: PRENATAL VITAMIN TAB PO SCH (08:55)
[2017-08-17] MEDS: IBUPROFEN 600 MG TAB PO PRN ×2 (00:16→08:52)
--- NOTE | 2017-08-17 06:42 | Progress Note ---
Subjective Aug 17, 2017. Subjective conversation w/ patient, physical exam, chart review, lab review Ambulation: ambulating normally Voiding: no voiding problems Passing Gas: Yes Diet Tolerance: Regular Diet Lochia: Small Feeding Type: Breast Feeding Review of Systems Constitutional: No fever, No chills Respiratory: No cough, No shortness of breath Cardiac: No chest pain, No palpitations Abdomen: No pain, No nausea, No vomiting Female : No dysuria Objective Vital Signs Date Time Temp Pulse Resp B/P (MAP) Pulse Ox O2 Delivery O2 Flow Rate FiO2 08/16/17 23:10 36.6 58 16 119/78 (92) Room Air 08/16/17 23:10 98 Room Air 08/16/17 19:30 36.7 76 20 120/83 (95) 100 Room Air 08/16/17 15:35 Room Air 08/16/17 15:35 36.8 18 111/74 (86) Room Air 08/16/17 11:40 36.8 69 18 106/66 (79) Room Air 08/16/17 08:00 36.6 77 16 110/72 (85) Room Air 08/16/17 08:00 Room Air Physical Exam General Appearance: WELL-APPEARING, WD/WN, NO APPARENT DISTRESS Respiratory/Chest: lungs clear, no accessory muscle use Cardiovascular: regular rate, rhythm, no murmur Abdomen: non tender, soft Fundus: Firm, Relation to Umbilicus (1 cm below the umbilicus) Extremities: non-tender, normal inspection Medications Current Inpatient Medications Medications (Trade) Dose Ordered Sig/Evelina Route Start Time Stop Time Status Last Admin Dose Admin Lactated Ringer's 1,000 ml @ 125 mls/hr Q8H IV 08/15/17 13:50 09/14/17 13:49 Oxytocin (Pitocin IV) 30 units UD PRN IV 08/15/17 14:00 09/14/17 13:59 Benzocaine (Dermoplast Aero Spr) 1 appln PRN PRN EXT 08/15/17 14:00 09/14/17 13:59 Cocaine HCl (Supercream 0.870% Cr) BID PRN EXT 08/15/17 14:00 08/29/17 13:59 Hydrocortisone Acetate (Anusol Hc Supp) 25 mg BID PRN VT 08/15/17 14:00 09/14/17 13:59 Lanolin (Lanolin Oint) PRN PRN EXT 08/15/17 14:00 09/14/17 13:59 Prenat Multivit/ [place]/Iron/Folic Ac ( Vitamin Tab) 1 tab DAILY PO 08/16/17 08:00 09/15/17 07:59 08/16/17 08:55 1 TAB Ibuprofen (Motrin Tab) 600 mg Q4H PRN PO 08/15/17 14:00 09/14/17 13:59 08/17/17 00:16 600 MG Acetaminophen (Tylenol Tab) 650 mg Q6H PRN PO 08/15/17 14:00 09/14/17 13:59 Oxycodone/ Acetaminophen (Percocet 5-325mg Tab) 1 tab Q4H PRN PO 08/15/17 14:00 08/29/17 13:59 Docusate Sodium (coLACE CAP) 100 mg BID PO 08/15/17 20:00 09/14/17 19:59 08/16/17 20:11 100 MG Oxytocin 30 units/ Lactated Ringer's 1,003 ml @ 0 mls/hr Q0M IV 08/15/17 16:00 09/14/17 15:59 Assessment and Plan Problem List Medical Problems: (1) Anemia affecting Status: Acute (2) Anemia affecting in third trimester Status: Acute (3) Dyspnea Status: Acute Post- Day#: 2 Continue Routine Care: 31, F, , A+/GBS-/RI, vaginal delivery Sunday am, PPD2. Patient experienced hemorrhage in the afternoon following delivery, with EBL of 1000 cc in addition to blood loss at delivery. The patient was found to have a Hgb of 6.9 and was subsequently transfused 2 units of PRBC. Hgb was 9.4 yesterday. Patient describes limited ambulation yesterday and an episode of dizziness. Pt denies symptoms of severe anemia; no chest pain, sob, visual changes. Vitals were reviewed this am and are WNL. 1. Recovery following vaginal delivery--ambulation with assistance, support BF, monitor lochia, control pain 2. Hemorrhage--monitor lochia, vitals and I/O's. Hgb improved to 9.4. Patient's vitals are WNL. 3. Discuss discharge planning Resident Physician Supervision Note: I interviewed and examined the patient. Discussed with Dr. Nunez and agree with findings and plan as documented in the note. Any exceptions or clarifications are listed here: Pt tolerating Hgb. Will d/c on po Fe bid, instructions given. Documented By: Ian Staley
[2017-08-17] MEDS ORDERED: FERR1TAB13 PO (07:25)
[2017-08-17 08:10] VITALS: BP 122/76; PULSE 74; TEMP 36.6; O2SAT 99
[2017-08-17] MEDS: PRENATAL VITAMIN TAB PO SCH (08:51)
[2017-08-17] MEDS: DOCUSATE SODIUM 100 MG CAP PO SCH (08:51)
[2017-08-17 14:33] VITALS: BP_DIAS 76; PULSE 74; TEMP 36.6
== END 2017-08-17 14:53 | disposition home or self-care (01) | DRG 774 ==
LOC: C.LD 07:54 → C.OBG 08-16 05:31
PROVIDERS: ADMIT Obstetrics & Gynecology; ATTEND Obstetrics & Gynecology
PROC: 10E0XZZ Delivery of Products of Conception, External Approach (ICD-10-PCS; principal; 2017-08-15)
PROC: 0HQ9XZZ Repair Perineum Skin, External Approach (ICD-10-PCS; principal; 2017-08-15)
PROC: 3E0P7GC Introduction of Other Therapeutic Substance into Female Reproductive, Via Natural or Artificial Opening (ICD-10-PCS; 2017-08-15)
DX: O36.5930 Maternal care for other known or suspected poor fetal growth, third trimester, not applicable or unspecified (principal); O72.1 Other immediate postpartum hemorrhage; O70.0 First degree perineal laceration during delivery; O99.02 Anemia complicating childbirth; Z3A.39 39 weeks gestation of pregnancy; Z37.0 Single live birth

== ENCOUNTER → 2017-08-21 | Outpatient (CLI) | payer OTHER ==
[~2017-08-21] MED LIST changes: +FERR1TAB13 PO
--- NOTE | 2017-08-21 14:44 | DIAGNOSTIC IMAGING REPORT ---
L VENOUS DOPP LOWER EXT UNILAT CLINICAL HISTORY: 32 years-old Female presenting with LT LEG PAIN/SWELLING. TECHNIQUE: Real-time grayscale and color and spectral Doppler ultrasound imaging of the veins of the left lower extremity was performed. Compression and augmentation were also utilized. COMPARISON: 07/08/2017. FINDINGS: Left: Common femoral vein: Patent. Greater saphenous vein: Patent. Deep femoral vein: Patent. Femoral vein: Patent. Popliteal vein: Patent. Calf veins: Patent. Other: None. IMPRESSION: No evidence of deep venous thrombosis. Electronically signed by: Sawyer Nelson M.D. 08/21/2017 2:43 PM Dictated Date/Time: 08/21/2017 2:42 PM
== END | disposition home or self-care (01) ==
LOC: C.ULTRBC 14:23
PROVIDERS: ATTEND Obstetrics & Gynecology
DX: M79.605 Pain in left leg (principal)

== ENCOUNTER → 2017-09-03 | Outpatient (CLI) | payer OTHER ==
--- NOTE | 2017-09-03 18:25 | DIAGNOSTIC IMAGING REPORT ---
L VENOUS DOPP LOWER EXT UNILAT CLINICAL HISTORY: L LEG PAIN pain. Edema. TECHNIQUE: Venous Doppler COMPARISON STUDY: None FINDINGS: Normal study IMPRESSION: Normal study The above report was generated using voice recognition software. It may contain grammatical, syntax or spelling errors. Electronically signed by: Danish Maciel M.D. 09/03/2017 6:23 PM Dictated Date/Time: 09/03/2017 6:23 PM
== END | disposition home or self-care (01) ==
LOC: C.ULTR 17:50
PROVIDERS: ATTEND Obstetrics & Gynecology
DX: M79.605 Pain in left leg (principal)